=== PATIENT | male | born 1950 | race Caucasian/White ===

== ENCOUNTER 2022-10-08 13:11 | Observation (INO) | payer MEDICARE, SELFPAY ==
[2022-10-08] VITALS (14 sets, daily range): BP systolic 120–166; BP diastolic 81–129; PULSE 78–92; RESP 12–24; TEMP 36.3; O2SAT 99–100; BMI 24.4
--- NOTE | 2022-10-08 13:15 | DI.RAD.S_ITS ---
PROCEDURE: XR CHEST 1V INDICATIONS: chest pain TECHNIQUE: One view of the chest was acquired. COMPARISON: [facility], CT, CT ANGIO CHEST PE PROTOCOL, 10/08/2022, 16:42. FINDINGS: Surgical changes and devices: None. Lungs and pleura: Lungs are clear. No pleural effusions or pneumothorax. Mediastinum: Mediastinal contours appear normal. Heart size is prominent. Bones and chest wall: No suspicious bony lesions. Overlying soft tissues appear unremarkable. IMPRESSION: No acute cardiopulmonary abnormality. Dictated by: Justice Oneill M.D. on 10/09/2022 at 13:31 Approved by: Justice Oneill M.D. on 10/09/2022 at 13:32
--- NOTE | 2022-10-08 13:16 | DI.CT.S_ITS ---
PROCEDURE: CT HEAD/BRAIN WO CON INDICATIONS: fall on thinners. syncope TECHNIQUE: Noncontrast 4.5 mm thick angled axial sections acquired from the foramen magnum to the vertex, with coronal and sagittal reformats. For radiation dose reduction, the following was used: automated exposure control, adjustment of mA and/or kV according to patient size. COMPARISON: [facility], CR, XR CHEST 1V, 10/08/2022, 12:58. FINDINGS: Image quality: Excellent. CSF spaces: Basal cisterns are patent. No extra-axial fluid collections. The ventricles are symmetric in size and shape. Brain: No intracranial bleeds or masses. There is cerebral volume loss for age, with resultant ventricular and sulcal prominence. There are periventricular and deep white matter chronic small vessel ischemic changes. There is intracranial internal carotid artery atherosclerosis. Skull and face: Calvarium and visualized facial bones appear intact, without suspicious lesions. Sinuses: Visualized sinuses and mastoids are clear. IMPRESSION: No acute intracranial hemorrhage is seen. No acute intracranial process is seen. Dictated by: Jose Roberto Escoto M.D. on 10/08/2022 at 12:38 Approved by: Jose Roberto Escoto M.D. on 10/08/2022 at 12:39
[2022-10-08 14:01] LABS: Add Manual Diff / Slide Review NO; Basophils Absolute Auto 0 /uL (0-100); Basophils Percent Auto 0.3 % (0-2); Eosinophils Absolute Auto 0 /uL (0-450); Eosinophils Percent Auto 0.4 % (2-4); Hematocrit 43.3 % (41-53); Lymphocytes Absolute Auto 1000 /uL (1100-4500); Lymphocytes Percent Auto 10.9 % (25-40); Mean Corpuscular HGB Conc 34.7 % (30-36); Mean Corpuscular Hemoglobin 29.6 PG (26-34); Mean Corpuscular Volume 85.3 fL (80-100); Monocytes Absolute Auto 300 /uL (0-900); Monocytes Percent Auto 3.4 % (3-14); Neutrophils Absolute Auto 8100 /uL (1500-7000); Platelet Count 147 X10^3/uL (150-400); Red Blood Cell Count 5.07 X10^6/uL (4.5-5.9); Red Cell Distribution Width 12.4 % (11.6-14.8); White Blood Cell Count 9.6 X10^3/uL (4.5-11.0)
--- NOTE | 2022-10-08 14:02 | ED_ITS ---
HPI - Syncope General Chief Complaint: Trauma Stated Complaint: syncope Time Seen by Provider: 10/08/22 13:25 Source: patient, family and EMS Mode of arrival: EMS Limitations: no limitations History of Present Illness HPI narrative: Patient is a 72-year-old gentleman with a history of hypertension and TIA. Patient had a probable syncopal about 6:30 this morning. His was upstairs at home, she heard a crash. She called out to the patient, he answered saying he was okay. She went downstairs to check on him, she witnessed a 2nd syncopal event in front of her. He collapsed to the floor. There is slight shaking on down, no sustained seizure-type activity. He was unconscious only for several seconds then he was alert and oriented. He has a left brow laceration from the 1st fall. There were no injuries from the 2nd fall. He has minimal head pain. He has no visual changes or speech changes. He is alert and oriented without motor or sensory deficits. Related Data Home Medications Medication Instructions Recorded Confirmed amlodipine 10 mg tablet 10 mg PO DAILY 10/08/22 10/08/22 atorvastatin 40 mg tablet 40 mg PO QPM 10/08/22 10/08/22 cholecalciferol (vitamin D3) 25 1,000 unit PO DAILY 10/08/22 10/08/22 mcg (1,000 unit) tablet clopidogrel 75 mg tablet 75 mg PO DAILY 10/08/22 10/08/22 lisinopril 40 mg tablet 40 mg PO DAILY 10/08/22 10/08/22 metformin 1,000 mg tablet 1,000 mg PO QACBREAK 10/08/22 10/08/22 vitamin B complex 1 tab PO DAILY 10/08/22 10/08/22 Allergies Allergy/AdvReac Type Severity Reaction Status Date / Time diphenhydramine Allergy Intermediate Shakiness Verified 10/08/22 13:24 [From Yesika] Review of Systems Constitutional Constitutional: Denies chills, Denies fatigue, Denies fever(s) and Denies headache(s) Eyes Eyes: Denies blurry vision, Denies change in vision, Denies irritation and Denies loss of vision ENT Ears, Nose, Mouth, and Throat: Denies vertigo, Denies dizziness, Denies headache(s), Denies epistaxis, Denies mouth lesions, Denies nasal congestion and Denies sinus pain Cardiovascular Cardiovascular: Denies chest pain, Reports syncope, Denies rapid heart rate, Denies pedal edema, Denies irregular heart rhythm, Denies leg edema and Denies dyspnea on exertion Respiratory Respiratory: Denies chest congestion, Denies cough and Denies dyspnea on exe rtion Gastrointestinal Gastrointestinal: Denies abdominal pain, Denies dyspepsia, Denies nausea and Denies vomiting Genitourinary Comments: No symptoms Musculoskeletal Musculoskeletal: Denies arthralgias, Denies back pain, Denies deformity and Denies arthralgias Integumentary/Breasts Skin/Breast: Denies lesions and Denies rash Neurologic Neurologic: Denies behavioral changes, Denies confusion, Denies vertigo, Denies dizziness, Reports syncope, Denies headache(s), Denies loss of vision and Denies seizure-like activity (See HPI.) Psychiatric Psychiatric: Denies anxiety, Denies behavioral changes and Denies confusion Endocrine Endocrine: Denies fatigue Hematologic/Lymphatic Hematologic/Lymphatic: Reports system reviewed and no additional complaints, except as documented Comments: He is on Plavix due to history of TIA. Patient History Medical History (Updated 10/08/22 @ 15:21 by Dario Blanchard MD) Brain TIA Diabetes Hyperlipidemia Hypertension Social History household members: spouse Smoking Status: Never smoker Smoking Status: Never smoker alcohol intake frequency: 0-2 drinks per day Substance Use Type: does not use Exam Initial Vital Signs Initial Vital Signs: Vital Signs Pulse Rate 79 10/08/22 13:12 Respiratory Rate 15 10/08/22 13:12 Pulse Oximetry 100 10/08/22 13:12 Const General: cooperative, healthy appearing, comfortable, well developed and well groomed Orientation: Orientation (Normal) [facility] Head: other (Small left brow laceration.) Ears: TM's normal bilaterally Nose: nares normal Face and sinus: normal facial exam Mouth: oral mucosae normal Throat: posterior oropharynx normal Eyes General: Yes appearance normal, both eyes and all related structures Visual Ahn: normal visual ahn by confrontation Conjunctivae: conjunctivae normal Sclera: sclerae normal Pupils: PERRL EOM: EOM intact bilaterally Other: 1 cm left brow laceration, closed with Steri-Strips by nursing staff. Neck Neck: normal visual inspection, full ROM, supple and No JVD Thyroid: thyroid normal Chest Chest: normal inspection of the chest Resp Effort & Inspection: normal respiratory effort Auscultation: clear to auscultation bilaterally Cardio Palpation: normal PMI Rate: regular rate Rhythm: regular rhythm Heart Sounds: S1 normal, S2 normal, normal S1 and S2, no click, no gallops and no murmurs GI Inspection: normal to inspection Palpation: soft and No tender Auscultation: normal bowel sounds Back/Spine/Pelvis Back: normal to inspection and No back tenderness Skin General: no rashes or lesions noted Neuro General: patient alert, patient awake, patient oriented x3 and no focal motor deficits Motor: muscle tone normal throughout Sensory Exam: no sensory deficits noted Coordination: [id number] test normal Extrem General: normal to inspection, full ROM, no pedal edema and no calf tenderness Psych Appearance: grossly normal and well kempt Mental Status: mental status grossly normal Course Course Course Narrative: Patient's blood pressure, and cardiac monitoring has been normal since arrival. EKG is reassuring. He is given 2 g of magnesium for hypomagnesemia. There are no other immediate concerning lab abnormalities. Head CT is benign. His experience with syncope is highly concerning for arrhythmia. I have discussed the case with the hospitalist, Dr. Muhammad. The patient will be admitted to observation to a telemetry bed. Orders Ordered: ED Orders 10/08/22 13:15 XR chest 1V Stat COVID19 -Nasal RAPID/Pre-Proc Stat EKG-12 Lead Stat 10/08/22 13:16 CT head/brain wo con Stat 10/08/22 13:45 Complete Blood Count AUTO DIFF Stat Partial Thromboplastin Time Stat Prothrombin Time INR Stat 10/08/22 13:55 Comprehensive Metabolic Panel Stat Lipase Stat Magnesium Stat Troponin & CK Cardiac Panel Stat Discontinued Medications Aspirin (Aspirin 81 Mg Chew Tab) 324 mg PO NOW ONE Stop: 10/08/22 13:16 Last Admin: 10/08/22 13:29 Dose: Not Given Documented By: CHARLEE Vital Signs Vital signs: Vital Signs - 8 hr 10/08/22 13:16 10/08/22 13:16 10/08/22 13:12 Temperature 97.4 F L 97.4 F L Pulse Rate 83 79 Respiratory Rate 18 15 Blood Pressure 163/84 H Pulse Oximetry 99 100 Oxygen Delivery Method Room Air 10/08/22 13:26 10/08/22 13:26 10/08/22 13:30 Temperature Pulse Rate 79 Respiratory Rate 14 Blood Pressure 159/81 H 144/87 H Pulse Oximetry 100 Oxygen Delivery Method 10/08/22 13:30 10/08/22 14:00 10/08/22 14:00 Temperature Pulse Rate 78 82 Respiratory Rate 13 Blood Pressure 144/88 H Pulse Oximetry 100 100 Oxygen Delivery Method 10/08/22 14:30 10/08/22 14:30 Temperature Pulse Rate 81 Respiratory Rate 15 Blood Pressure 150/96 H Pulse Oximetry 100 Oxygen Delivery Method MDM - Syncope Lab Data 10/08/22 13:45 10/08/22 13:45 Labs: Lab Results 10/08/22 10/08/22 10/08/22 Range/Units 13:45 13:45 13:55 WBC 9.6 (4.5-11.0) X10^3/uL RBC 5.07 (4.5-5.9) X10^6/uL Hgb 15.0 (13.5-17.5) g/dL Hct 43.3 (41-53) % MCV 85.3 (80-100) fL MCH 29.6 (26-34) PG MCHC 34.7 (30-36) % RDW 12.4 (11.6-14.8) % Plt Count 147 L (150-400) X10^3/uL Neut % (Auto) 85.0 H (50-75) % Lymph % (Auto) 10.9 L (25-40) % [place] % (Auto) 3.4 (3-14) % Eos % (Auto) 0.4 L (2-4) % Baso % (Auto) 0.3 (0-2) % Neut # (Auto) 8100 H (2351-0092) /uL Lymph # (Auto) 1000 L (6572-7361) /uL [place] # (Auto) 300 (0-900) /uL Eos # (Auto) 0 (0-450) /uL Baso # (Auto) 0 (0-100) /uL PT 11.9 (10.1-12.7) SECONDS INR 1.0 (0.9-1.3) APTT 21 L (26-36) SECONDS Sodium 138 (137-145) mmol/L Potassium 3.9 (3.4-5.1) mmol/L Chloride 101 (98-107) mmol/L Carbon Dioxide 30 (22-32) mmol/L BUN 14 (9-20) mg/dL Creatinine 0.67 (0.66-1.25) mg/dL Estimated GFR > 60 (>60) mL/min BUN/Creatinine Ratio 20.9 (6-22) Glucose 152 H (80-110) mg/dL Calcium 9.5 (8.4-10.2) mg/dL Magnesium 1.4 L (1.6-2.3) mg/dL Total Bilirubin 1.1 (0.2-1.3) mg/dL AST 27 (17-59) IU/L ALT 24 (<50) IU/L Alkaline Phosphatase 58 (38-126) U/L Total Creatine Kinase 39 L (55-170) U/L CK-MB (CK-2) TNP CK-MB (CK-2) Rel Index TNP Troponin I < 0.012 (0.01-0.034) ng/mL Total Protein 6.9 (6.3-8.2) g/dL Albumin 4.1 (3.5-5.0) g/dL Globulin 2.8 (1.7-4.1) g/dL Albumin/Globulin Ratio 1.5 (1.0-2.8) Lipase 114 (23-300) U/L Imaging Data Chest x-ray: My Impression: No acute process CT scan - chest: Radiologist's Impression: No acute process. ECG Data Attestation: I personally reviewed and interpreted this ECG as follows: (Normal sinus rhythm rate 76 beats per minute. Minimal voltage for LVH. Poor R-wave progression to the anterior leads. No acute ST elevation. Normal intervals.) Critical Care Time Critical Care Time Critical Care Time: Yes Total Critical Care Time: 40 Attestation: Critical care time includes initial patient assessment. Time includes review of EKG, lab and radiology data. The situation was explained to the patient, with concerns about cardiac arrhythmia. The patient was discussed with admitting hospitalist. Discharge Plan Departure Patient Disposition: Admitted as Observation Prescriptions: No Action lisinopril 40 mg tablet 40 mg PO DAILY Label Comments: take 1 tablet by mouth once daily metformin 1,000 mg tablet 1,000 mg PO QACBREAK Label Comments: take 1 tablet by mouth EVERY MORNING WITH BREAKFAST amlodipine 10 mg tablet 10 mg PO DAILY Label Comments: take 1 tablet by mouth once daily clopidogrel 75 mg tablet 75 mg PO DAILY Label Comments: take 1 tablet by mouth once daily atorvastatin 40 mg tablet 40 mg PO QPM Label Comments: take 1 tablet by mouth nightly cholecalciferol (vitamin D3) 25 mcg (1,000 unit) tablet 1,000 unit PO DAILY Label Comments: take 1 tablet by mouth once daily vitamin B complex [B Complex 1] Tablet 1 tab PO DAILY Referrals: Miscellaneous,Doctor, MD [Primary Care Provider] - Admit Date/Time: 10/08/22 15:25
[2022-10-08 14:12] LABS: Prothrombin Time 11.9 SECONDS (10.1-12.7)
[2022-10-08 14:15] LABS: PTT Partial Thromboplastin Tim 21 SECONDS (26-36)
[2022-10-08 14:52] LABS: Alanine Aminotransferase 24 IU/L (<50); Albumin 4.1 g/dL (3.5-5.0); Albumin Globulin Ratio 1.5 (1.0-2.8); Alkaline Phosphatase 58 U/L (38-126); Aspartate Aminotransferase 27 IU/L (17-59); BUN Creatinine Ratio 20.9 (6-22); Bilirubin Total 1.1 mg/dL (0.2-1.3); Blood Urea Nitrogen 14 mg/dL (9-20); Calcium 9.5 mg/dL (8.4-10.2); Carbon Dioxide 30 mmol/L (22-32); Chloride 101 mmol/L (98-107); Creatine Kinase 39 U/L (55-170); Estimated Glomerular Filt Rate > 60 mL/min (>60); Globulin 2.8 g/dL (1.7-4.1); Glucose 152 mg/dL (80-110); HEMOLYSIS < 15 (0-50); Lipase 114 U/L (23-300); Magnesium 1.4 mg/dL (1.6-2.3); Potassium 3.9 mmol/L (3.4-5.1); Sodium 138 mmol/L (137-145); Total Protein 6.9 g/dL (6.3-8.2)
[2022-10-08 15:09] LABS: Troponin I < 0.012 ng/mL (0.01-0.034)
--- NOTE | 2022-10-08 15:21 | CM.DANOTE ---
CM Initial Discharge Assessment Patient is a 72yo male who is seen in the ED for syncope. Patient is independent at baseline and lives at home in [place] with his , Lin. Pt PCP is Dr. Juliana Tobin through the [facility]. He has no hx of SNF or HH. SW met with pt and at bedside. He is calm, cooperative, and easily engaged in assessment. Pt is physically active. He did have OP PT services this fall after a fall in April where he injured his knee playing with his grandchildren. He used a walking stick when outside during the fall. Does not use at this time. Pt is an avid birdwatcher. he identifies his as a support as well as her sister in [place]. They are relatively close with one neighbor. Pt has two children who live in [facility] and [place], each of which have four children. Plan: DCP will follow to assist with any discharge needs. QUINTON Núñez LICSW Discharge Planning/Care Management CM Discharge Assessment Start: 10/08/22 15:18 Freq: Status: Active Protocol: Document 10/08/22 15:19 VR (Rec: 10/08/22 15:21 VR [id number]) Discharge Planning Assessment Assigned Project Drilling Engineer QUINTON Núñez LICSW DPOA/Assigned Designee Name : Lin García Contact Information [phone] Advance Directives? No History Provided By Patient,Significant Other, Medical Record Has Patient been admitted in last 30 No days? Prior Living Arrangements House Household Members spouse Type of transporation used prior to Drives own vehicle admit Independent with ADL's Yes Is patient alert and oriented? Yes Caregiver for Another No Comment Has a walking stick which belonged to his father which he used when outside following a knee injury in april. Does not use at baseline. Barriers to Discharge No Discharge Plan Home Please Provide Date Initial DC 10/08/22 Assessment Was Performed
--- NOTE | 2022-10-08 15:26 | DI.ECHO.S_ITS ---
[facility] +---------+ : : [id number] : : : : [phone] : : : : Phone: [phone]+ Echocardiogram Report + + :Name: KENTON NUNEZ Study Date: 10/09/2022 Height: 71 in : :[facility] ReadingLocation: Weight: 175 lb : : Gender: Male BSA: 2.0 m2 : :: 1950 Age: 72 yrs BP: 133/83 mmHg: :Reason For Study: Syncope : :Ordering Physician: Jb, : :Bonilla GRIMM Performed By: Giselle Gomez : :Referring: Bonilla Muhammad DO : + + Interpretation Summary The left ventricle is normal in size and wall thickness. Left ventricular systolic function appears normal without focal wall motion abnormalities. The ejection fraction is estimated to be 65-70%. Diastolic parameters suggest a relaxation abnormality of the left ventricle, consistent with probable normal filling pressures. The right ventricle is normal in size and function. The left atrial size is normal. The right atrium is normal in size. There is no significant valvular heart disease. The aortic root is normal size. Procedure: A two-dimensional transthoracic echocardiogram with color flow and Doppler was performed. The patient was in sinus rhythm with heart rates between 72-81 bpm during the exam. Left Ventricle: The left ventricle is normal in size and wall thickness. Left ventricular systolic function appears normal without focal wall motion abnormalities. The ejection fraction is estimated to be 65-70%. Diastolic parameters suggest a relaxation abnormality of the left ventricle, consistent with probable normal filling pressures. Right Ventricle: The right ventricle is normal in size and function. Atria: The left atrial size is normal. The right atrium is normal in size. The atrial septum is aneurysmal. There is no Doppler evidence for an interatrial shunt. Mitral Valve: The mitral valve is normal in structure and function. The mitral valve leaflets are slightly calcified. There is trace mitral regurgitation. Aortic Valve: The aortic valve is trileaflet. The aortic valve is mildly calcified. There is mildly reduced leaflet mobility. There is trace aortic regurgitation. Tricuspid Valve: The tricuspid valve is normal in structure and function. There is a trace or physiologic amount of tricuspid regurgitation. Pulmonic Valve: The pulmonic valve leaflets are thin and pliable; valve motion is normal. There is a trace or physiologic amount of pulmonic regurgitation. There is no significant valvular heart disease. Great Vessels: The aortic root is normal size. The aortic arch is mildly enlarged. The IVC was not well visualized secondary to technical limitations making central venous pressures difficult to estimate. Pericardium/ Pleura There is no pericardial effusion. There is no pleural effusion. MMode/2D Measurements & Calculations LVIDd: 3.9 cm LVOT diam: 1.9 cm LVIDs: 2.3 cm Ao root diam: 3.8 cm FS: 41.0 % asc Aorta Diam: 3.6 cm EPSS: 0.30 cm IVSd: 1.0 cm LVPWd: 0.90 cm LV ramírez. diameter/BSA (cm/m^2): 2.0 LV sys. diameter/BSA (cm/m^2): 1.2 LA dimension: 3.7 cm RA long axis: 6.9 cm LA A2 area: 16.1 cm2 LA A4 area: 16.5 cm2 LA length (vol): 4.9 cm LA vol: 45.8 ml LA vol index: 23.0 ml/m2 LVLs ap4: 5.7 cm LVLd ap2: 7.7 cm LVLs ap2: 5.2 cm TAPSE_phl: 2.0 cm Doppler Measurements & Calculations Ao V2 max: 173.0 cm/sec LVOT Max Herson: 98.9 cm/sec Ao V2 mean: 130.0 cm/sec LV V1 max P.9 mmHg Ao max P.0 mmHg LV V1 VTI: 20.3 cm Ao mean P.0 mmHg GA(I,D): 1.5 cm2 Ao V2 VTI: 38.1 cm GA(V,D): 1.6 cm2 sev ratio: 0.53 GA indexed to BSA (cm^2/m^2): 0.76 MV E max herson: 81.2 cm/sec TR max herson: 239.0 cm/sec MV A max herson: 145.0 cm/sec TR max P.8 mmHg MV E/A: 0.56 PA V2 max: 79.7 cm/sec Med Peak E' Herson: 5.1 cm/sec PA V2 mean: 51.5 cm/sec E/E' med: 15.8 PA mean P.0 mmHg Lat Peak E' Herson: 4.2 cm/sec E/E' lat: 19.5 E/e' average: 17.7 MV dec time: 0.26 sec MVA(VTI): 1.8 cm2 MV V2 mean: 85.7 cm/sec SV(LVOT): 57.6 ml MV mean P.0 mmHg MV V2 VTI: 32.1 cm AV VR_phl: 0.57 GA(VTI)/BSA_phl: 0.76 Reading Physician:10:17 AM
[2022-10-08] MEDS: SODIUM CHLORIDE 0.9% 1,000 ML 100 ML IV (15:50)
[2022-10-08 16:15] LABS: COVID19 -Nasal RAPID Negative (Negative)
[2022-10-08 16:17] LABS: D Dimer 2640 ng/ml (<500)
[2022-10-08 16:20] LABS: Ethanol (ETOH) < 10 mg/dL
--- NOTE | 2022-10-08 16:23 | DI.CT.S_ITS ---
PROCEDURE: CT ANGIO CHEST PE PROTOCOL INDICATIONS: syncope, elevated dimer TECHNIQUE: After the administration of intravenous contrast, 2 mm thick sections acquired from the pulmonary apices to the posterior costophrenic angles. 3-dimensional maximum intensity projection (MIP) coronal and sagittal reformats were then acquired through the thorax. For radiation dose reduction, the following was used: automated exposure control, adjustment of mA and/or kV according to patient size. COMPARISON: [facility], CR, XR CHEST 1V, 10/08/2022, 12:58. [facility], CT, CT HEAD/BRAIN WO CON, 10/08/2022, 13:25. FINDINGS: Image quality: Excellent. Pulmonary arteries: Pulmonary arteries are normal in size, and demonstrate no intraluminal filling defects to suggest central pulmonary embolism. Lungs and pleura: Lungs are clear. No pleural effusions or pneumothorax. Central and peripheral airways are patent. Mediastinum: Heart size is normal, without pericardial effusion. No mediastinal or hilar adenopathy. Thoracic aorta is normal in caliber and enhancement. Esophagus is normal in caliber, without hiatal hernia. Bones and chest wall: No suspicious bony lesions. Ribs and thoracic spine appear intact throughout. Mild dextroconvex scoliotic curvature is seen. Lower cervical spine degenerative changes are no Thyroid gland demonstrates no significant abnormality. No axillary or supraclavicular adenopathy. Abdomen: Note is made that the hepatic flexure is elevated and seen anterior to the liver. The visualized portions of the upper abdominal structures are otherwise unremarkable for imaging technique. IMPRESSION: Negative for deep venous thrombosis. Additional findings: Lower cervical spine degenerative change Dextroconvex scoliotic curvature Elevated hepatic flexure, seen anterior to the liver Dictated by: Jose Roberto Escoto M.D. on 10/08/2022 at 16:10 Approved by: Jose Roberto Escoto M.D. on 10/08/2022 at 16:12
[2022-10-08 16:26] LABS: Hemoglobin A1C% w Est Avg Glu 8.6 % (4.0-6.0)
--- NOTE | 2022-10-08 16:28 | P.HP_ITS ---
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 States he woke up around 8:00 a.m. kitchen for some water. His was upstairs and around 9:00 a.m. she heard a thump downstairs which she now believes was him passing out. At the time however she called down to say if he was okay and he called back so she did not check on him. Patient does not recall this event or the time afterward until around 10:00 a.m. when he was again in the kitchen with his beside him and then suddenly lost consciousness and hit the floor causing a laceration on his left eyebrow. He laid there for a few seconds per his , then came to and was immediately coherent and wondering what had happened. Patient remembers getting up off the floor and everything after that. Patient had not eaten anything yet that morning blood sugar is 123 and blood pressure was 130's systolic. He also had not taken his morning blood pressure medications yet. Patient denies chest pain, shortness breast, headache, palpitations, dizziness, abdominal pain or diarrhea. Patient History Medical History (Updated 10/08/22 @ 15:21 by Dario Blanchard MD) Brain TIA Diabetes Hyperlipidemia Hypertension Family & Social History Social History: household members spouse Prior Living Arrangements House Safety & Behavioral: Feels Safe in Current Yes Environment Been Physically Hurt or No Threatened By a Person Tobacco & Substance use: Smoking Status Never smoker alcohol intake frequency 0-2 drinks per day Substance Use Type does not use Meds Home Medications and Allergies Home Medications Medication Instructions Recorded Confirmed Type amlodipine 10 mg tablet 10 mg PO DAILY 10/08/22 10/08/22 History atorvastatin 40 mg tablet 40 mg PO QPM 10/08/22 10/08/22 History cholecalciferol (vitamin D3) 25 1,000 unit PO DAILY 10/08/22 10/08/22 History mcg (1,000 unit) tablet clopidogrel 75 mg tablet 75 mg PO DAILY 10/08/22 10/08/22 History lisinopril 40 mg tablet 40 mg PO DAILY 10/08/22 10/08/22 History metformin 1,000 mg tablet 1,000 mg PO QACBREAK 10/08/22 10/08/22 History vitamin B complex 1 tab PO DAILY 10/08/22 10/08/22 History Allergies Allergy/AdvReac Type Severity Reaction Status Date / Time diphenhydramine Allergy Intermediate Shakiness Verified 10/08/22 13:24 [From Benadryl] Review of Systems Review of Systems Narrative: All other systems reviewed with the patient and are negative unless otherwise stated. Exam Vital Signs (past 8 hours): - 10/08/22 13:16 10/08/22 13:16 10/08/22 13:12 Temperature 97.4 F L 97.4 F L Pulse Rate 83 79 Respiratory Rate 18 15 Blood Pressure 163/84 H Pulse Oximetry 99 100 Oxygen Delivery Method Room Air 10/08/22 13:26 10/08/22 13:26 10/08/22 13:30 Temperature Pulse Rate 79 Respiratory Rate 14 Blood Pressure 159/81 H 144/87 H Pulse Oximetry 100 Oxygen Delivery Method 10/08/22 13:30 10/08/22 14:00 10/08/22 14:00 Temperature Pulse Rate 78 82 Respiratory Rate 13 Blood Pressure 144/88 H Pulse Oximetry 100 100 Oxygen Delivery Method 10/08/22 14:30 10/08/22 14:30 10/08/22 15:00 Temperature Pulse Rate 81 Respiratory Rate 15 Blood Pressure 150/96 H 152/91 H Pulse Oximetry 100 Oxygen Delivery Method 10/08/22 15:00 Temperature Pulse Rate 86 Respiratory Rate 20 Blood Pressure Pulse Oximetry 100 Oxygen Delivery Method Oxygen Delivery Method Room Air Narrative Exam Narrative: GEN: no acute distress, left eyebrow laceration without current bleeding HEENT: moist mucous membranes, PERRL NECK: trachea midline, no JVD CV: regular rate and rhythm, no murmurs PULM: clear bilaterally ABD: soft, nontender, nondistended, no organomegaly EXT: warm and well perfused with no edema NEURO: awake, alert, oriented, no focal deficits Objective Labs 10/08/22 13:45 10/08/22 13:55 Labs: Laboratory Results - last 24 hr 10/08/22 10/08/22 10/08/22 13:45 13:45 13:45 WBC 9.6 RBC 5.07 Hgb 15.0 Hct 43.3 MCV 85.3 MCH 29.6 MCHC 34.7 RDW 12.4 Plt Count 147 L Neut % (Auto) 85.0 H Lymph % (Auto) 10.9 L [place] % (Auto) 3.4 Eos % (Auto) 0.4 L Baso % (Auto) 0.3 Neut # (Auto) 8100 H Lymph # (Auto) 1000 L [place] # (Auto) 300 Eos # (Auto) 0 Baso # (Auto) 0 PT 11.9 INR 1.0 APTT 21 L D-Dimer 2640 H Sodium Potassium Chloride Carbon Dioxide BUN Creatinine Estimated GFR BUN/Creatinine Ratio Glucose Calcium Magnesium Total Bilirubin AST ALT Alkaline Phosphatase Total Creatine Kinase CK-MB (CK-2) CK-MB (CK-2) Rel Index Troponin I Total Protein Albumin Globulin Albumin/Globulin Ratio Lipase Ethyl Alcohol SARS-CoV-2 (PCR) 10/08/22 10/08/22 10/08/22 13:55 14:24 15:23 WBC RBC Hgb Hct MCV MCH MCHC RDW Plt Count Neut % (Auto) Lymph % (Auto) [place] % (Auto) Eos % (Auto) Baso % (Auto) Neut # (Auto) Lymph # (Auto) [place] # (Auto) Eos # (Auto) Baso # (Auto) PT INR APTT D-Dimer Sodium 138 Potassium 3.9 Chloride 101 Carbon Dioxide 30 BUN 14 Creatinine 0.67 Estimated GFR > 60 BUN/Creatinine Ratio 20.9 Glucose 152 H Calcium 9.5 Magnesium 1.4 L Total Bilirubin 1.1 AST 27 ALT 24 Alkaline Phosphatase 58 Total Creatine Kinase 39 L CK-MB (CK-2) TNP CK-MB (CK-2) Rel Index TNP Troponin I < 0.012 Total Protein 6.9 Albumin 4.1 Globulin 2.8 Albumin/Globulin Ratio 1.5 Lipase 114 Ethyl Alcohol < 10 SARS-CoV-2 (PCR) Negative Assessment & Plan Assessment & Plan narrative: # acute syncope -patient likely had 2 syncopal episodes at home at 9am which was unwitnessed and again at 10am which was witnessed -doubt hypoglycemia and orthostatic hypotension as BG was 123 and BP 130 right after event -concern is for cardiac arrythmia vs PE given dimer is 2640, however no CP or dyspnea and ECG reassuring without AV blocks -trend trops -telemetry -head CT negative, obtain CTA chest to r/o PE -obtain echo -check ethanol and drug screen # hypomagnesemia -1.4 in ED, s/p 2g -monitor and replete # history of TIA's -patient has had 4 previous each time with speech issues -was likely previously on aspirin alone, but due to repeat TIA now on plavix -continue plavix # HTN, chronic -check orthostatics and if ok will give home BP meds # HLD, chronic -continue home statin # DM2, chronic -check A1c -hold home metformin and use SSI Code status is full code. COVID negative. DVT prophylaxis with Lovenox. Proxy is . I have reviewed home meds and used all available resources to reconcile the home meds. This patient will be admitted as observation and will require less than 2 midnights of hospital time for syncopal workup. Time Spent With Patient Critical Care time: I spent a total of [] minutes of critical care time on this patient's care today; this time is exclusive of procedural time.
[2022-10-08] MEDS: MAGNESIUM SULFATE 2 GM/50 ML PIGGYBACK IV (16:46)
[2022-10-08 16:52] LABS: TSH w/ Reflex to FT4 0.74 uIU/mL (0.47-4.68)
[2022-10-08 18:02] LABS: Appearance Urine UA CLEAR; Bilirubin Urine UA NEGATIVE (NEGATIVE); Color Urine UA YELLOW; Glucose Urine UA NEGATIVE (Negative); Ketones Urine UA 2+ (NEGATIVE); Leukocyte Esterase Urine UA NEGATIVE (NEGATIVE); Nitrite Urine UA NEGATIVE (Negative); Occult Blood Urine UA NEGATIVE (Negative); Protein Urine UA NEGATIVE (Negative); Specific Gravity Urine UA 1.015 (1.000-1.035)
[2022-10-08 18:10] LABS: UR Morphine/Opiate cutoff 300 Negative (Negative); Ur Creatinine Normal (Normal); Ur Specific Gravity Normal (Normal); Urine Amphetamines Negative (Negative); Urine Barbiturates Negative (Negative); Urine Benzodiazepines Negative (Negative); Urine Cocaine Negative (Negative); Urine MDMA Negative (Negative); Urine Methadone Negative (Negative); Urine Methamphetamines Negative (Negative); Urine Oxycodone Negative (Negative); Urine Phencyclidine Negative (Negative); Urine Tetrahydrocannabinol Negative (Negative); Urine Tricyclic Antidepressant Negative (Negative); Urine pH Normal (Normal)
[2022-10-08 18:20] LABS: Bacteria Urine None Seen; RBC Urine None Seen (0-5/HPF); Squamous Epithelial Cell Urine None Seen (0-5/HPF); WBC Urine None Seen (0-5/HPF)
[2022-10-08 18:21] LABS: Culture Indicated Urine Cult Not Indicated
[2022-10-08 18:44] LABS: Troponin I < 0.012 ng/mL (0.01-0.034)
[2022-10-08] MEDS: ATORVASTATIN 20 MG TABLET 40 MG PO (21:02)
[2022-10-08] MEDS: INSULIN LISPRO 100 UNIT/ML 3ML VIAL SUBCUT (21:03)
[2022-10-08 22:56] LABS: Troponin I < 0.012 ng/mL (0.01-0.034)
[2022-10-09 00:05] VITALS: BP 129/87; PULSE 84; RESP 20; TEMP 37.1; O2SAT 97
[2022-10-09] MEDS: SODIUM CHLORIDE 0.9% 1,000 ML 100 ML IV (02:44)
[2022-10-09 03:47] VITALS: BP 133/83; PULSE 78; RESP 17; TEMP 36.9; O2SAT 100
[2022-10-09] MEDS: SODIUM CHLORIDE 0.9% FLUSH 10 ML IV ×2 (03:51→08:49)
[2022-10-09 06:25] LABS: Add Manual Diff / Slide Review NO; Basophils Absolute Auto 0 /uL (0-100); Basophils Percent Auto 0.4 % (0-2); Eosinophils Absolute Auto 100 /uL (0-450); Hematocrit 38.3 % (41-53); Hemoglobin 13.4 g/dL (13.5-17.5); Lymphocytes Absolute Auto 1300 /uL (1100-4500); Lymphocytes Percent Auto 16.9 % (25-40); Mean Corpuscular HGB Conc 35.1 % (30-36); Mean Corpuscular Hemoglobin 29.9 PG (26-34); Mean Corpuscular Volume 85.1 fL (80-100); Monocytes Absolute Auto 600 /uL (0-900); Monocytes Percent Auto 8.4 % (3-14); Neutrophils Absolute Auto 5500 /uL (1500-7000); Neutrophils Percent Auto 73.3 % (50-75); Platelet Count 177 X10^3/uL (150-400); Red Cell Distribution Width 12.5 % (11.6-14.8); White Blood Cell Count 7.6 X10^3/uL (4.5-11.0)
[2022-10-09 06:33] LABS: BUN Creatinine Ratio 18.5 (6-22); Blood Urea Nitrogen 12 mg/dL (9-20); Calcium 8.7 mg/dL (8.4-10.2); Carbon Dioxide 26 mmol/L (22-32); Chloride 102 mmol/L (98-107); Estimated Glomerular Filt Rate > 60 mL/min (>60); Glucose 199 mg/dL (80-110); HEMOLYSIS 16 (0-50); Potassium 4.2 mmol/L (3.4-5.1); Sodium 136 mmol/L (137-145)
[2022-10-09 06:36] LABS: Magnesium 1.6 mg/dL (1.6-2.3)
[2022-10-09 08:32] VITALS: BP 127/78; PULSE 72; RESP 18; TEMP 36.8; O2SAT 98
[2022-10-09 08:45] VITALS: BP 127/78; PULSE 72
[2022-10-09] MEDS: lisinopriL 20 MG TABLET 40 MG PO (08:45)
[2022-10-09] MEDS: MAGNESIUM SULFATE 4 GM/100 ML PIGGYBACK IV (08:45)
[2022-10-09] MEDS: ENOXAPARIN 40 MG/0.4 ML SYRINGE SUBCUT (08:45)
[2022-10-09] MEDS: AMLODIPINE 5 MG TABLET 10 MG PO (08:46)
[2022-10-09] MEDS: CLOPIDOGREL 75 MG TABLET PO (08:46)
[2022-10-09] MEDS: INSULIN LISPRO 100 UNIT/ML 3ML VIAL SUBCUT ×2 (08:48→12:24)
--- NOTE | 2022-10-09 11:39 | CM.DPNOTE ---
DC Note Reviewed chart. Patient has been discharged home today, to the care of his Lin. No barriers identified to patient's safe return home w/family, close outpatient f/u recommended JW
--- NOTE | 2022-10-09 15:35 | P.DS_ITS ---
History of Present Illness History of Present Illness Date Patient Seen: 10/09/22 Chief complaint: syncope Narrative: Jonathan García is a 72-year-old male with past medical history of multiple TIAs on Plavix, type 2 diabetes, hyperlipidemia, hypertension who presents for suspected syncope after fall at home. States he woke up around 8:00 a.m. kitchen for some water. His was upstairs and around 9:00 a.m. she heard a thump downstairs which she now believes was him passing out. At the time however she called down to say if he was okay and he called back so she did not check on him. Patient does not recall this event or the time afterward until around 10:00 a.m. when he was again in the kitchen with his beside him and then suddenly lost consciousness and hit the floor causing a laceration on his left eyebrow. He laid there for a few seconds per his , then came to and was immediately coherent and wondering what had happened. Patient remembers getting up off the floor and everything after that. Patient had not eaten anything yet that morning blood sugar is 123 and blood pressure was 130's systolic. He also had not taken his morning blood pressure medications yet. Patient denies chest pain, shortness breast, headache, palpitations, dizziness, abdominal pain or diarrhea. Discharge Providers Provider Date of admission: 10/08/22 15:25 Discharge Date: 10/09/22 Primary care physician: Doctor Jose Martin MD Discharge provider: Bonilla Muhammad DO Summary Hospital Course Discharge Diagnosis: # acute syncope -patient likely had 2 syncopal episodes at home at 9am which was unwitnessed and again at 10am which was witnessed -doubt hypoglycemia and orthostatic hypotension as BG was 123 and BP 130 right after event -concern is for cardiac arrythmia vs PE given dimer is 2640, however no CP or dyspnea and ECG reassuring without AV blocks -trops neg x3 -negative orthostatic vitals -telemetry showed now arrythmias -head CT negative, CTA chest to r/o PE negative -echo reassuring with EF 65-70% and diastolic dysfunction, no valvular disease and otherwise normal -ethanol and drug screen negative # hypomagnesemia -1.4 in ED, s/p 2g then 4g -monitor and replete # history of TIA's -patient has had 4 previous each time with speech issues -was likely previously on aspirin alone, but due to repeat TIA now on plavix -continue plavix # HTN, chronic -check orthostatics and if ok will give home BP meds # HLD, chronic -continue home statin # DM2, chronic -A1c 8.6% -hold home metformin and use SSI -raised metformin to 1000mg BID from qd on discharge Hospital Course: Patient admitted for syncope and had a full workup which was reassuring including EKG, tele, orthostatic vitals and echocardiogram. Mag was low and this was replaced with IV mag. Echo showed diastolic dysfunction with EF 65-70% but otherwise normal. Patient to speak with PCP about wearing a heart monitor as outpatient to look for arrhythmias over a few weeks. A1c was also elevated at 8.6% so raised home metformin to twice per day at 1000mg, then should have A1c rechecked in 3 months. Counseled he can also raise your insulin by 2 units until your morning glucose is in the range of 70-130, and currently at 180 in the mornings lately. Time Spent with Patient Time spent: Greater than 30 minutes Exam Vital Signs (past 8 hours): - 10/09/22 08:32 10/09/22 08:45 Temperature 98.3 F Pulse Rate 72 72 Respiratory Rate 18 Blood Pressure 127/78 127/78 Pulse Oximetry 98 Oxygen Flow Rate 0 Oxygen Delivery Method Room Air Oxygen Flow Rate 0 Narrative Exam Narrative: GEN: no acute distress, left eyebrow laceration with steri strips in place HEENT: moist mucous membranes, PERRL NECK: trachea midline, no JVD CV: regular rate and rhythm, no murmurs PULM: clear bilaterally ABD: soft, nontender, nondistended, no organomegaly EXT: warm and well perfused with no edema NEURO: awake, alert, oriented, no focal deficits Objective Labs 10/09/22 05:42 10/09/22 05:42 Labs: Laboratory Results - last 24 hr 10/08/22 10/08/22 10/08/22 13:45 13:45 13:45 WBC RBC Hgb Hct MCV MCH MCHC RDW Plt Count Neut % (Auto) Lymph % (Auto) [place] % (Auto) Eos % (Auto) Baso % (Auto) Neut # (Auto) Lymph # (Auto) [place] # (Auto) Eos # (Auto) Baso # (Auto) D-Dimer 2640 H Sodium Potassium Chloride Carbon Dioxide BUN Creatinine Estimated GFR BUN/Creatinine Ratio Glucose Hemoglobin A1c 8.6 H Calcium Magnesium Troponin I TSH 0.74 Urine Color Urine Appearance Urine pH Ur Specific [place] Urine Protein Urine Glucose (UA) Urine Ketones Urine Occult Blood Urine Nitrate Urine Bilirubin Urine Urobilinogen Ur Leukocyte Esterase Urine RBC Urine WBC Ur Squamous Epith Cells Urine Bacteria Ur Culture Indicated? U Opiates 300ng/mL cut Ur Oxycodone Screen Urine Methadone Screen Ur Barbiturates Screen U Tricyclic Antidepress Ur Phencyclidine Scrn Ur Amphetamines Screen U Methamphetamines Scrn Ur MDMA Scrn (Ecstasy) U Benzodiazepines Scrn Urine Cocaine Screen U Marijuana (THC) Screen Ethyl Alcohol SARS-CoV-2 (PCR) 10/08/22 10/08/22 10/08/22 14:24 15:23 17:35 WBC RBC Hgb Hct MCV MCH MCHC RDW Plt Count Neut % (Auto) Lymph % (Auto) [place] % (Auto) Eos % (Auto) Baso % (Auto) Neut # (Auto) Lymph # (Auto) [place] # (Auto) Eos # (Auto) Baso # (Auto) D-Dimer Sodium Potassium Chloride Carbon Dioxide BUN Creatinine Estimated GFR BUN/Creatinine Ratio Glucose Hemoglobin A1c Calcium Magnesium Troponin I TSH Urine Color Yellow Urine Appearance Clear Urine pH 8.0 Ur Specific [place] 1.015 Urine Protein Negative Urine Glucose (UA) Negative Urine Ketones 2+ H Urine Occult Blood Negative Urine Nitrate Negative Urine Bilirubin Negative Urine Urobilinogen 2.0 H Ur Leukocyte Esterase Negative Urine RBC None seen Urine WBC None seen Ur Squamous Epith Cells None seen Urine Bacteria None seen Ur Culture Indicated? Cult not indicated U Opiates 300ng/mL cut Ur Oxycodone Screen Urine Methadone Screen Ur Barbiturates Screen U Tricyclic Antidepress Ur Phencyclidine Scrn Ur Amphetamines Screen U Methamphetamines Scrn Ur MDMA Scrn (Ecstasy) U Benzodiazepines Scrn Urine Cocaine Screen U Marijuana (THC) Screen Ethyl Alcohol < 10 SARS-CoV-2 (PCR) Negative 10/08/22 10/08/22 10/08/22 17:35 18:07 22:24 WBC RBC Hgb Hct MCV MCH MCHC RDW Plt Count Neut % (Auto) Lymph % (Auto) [place] % (Auto) Eos % (Auto) Baso % (Auto) Neut # (Auto) Lymph # (Auto) [place] # (Auto) Eos # (Auto) Baso # (Auto) D-Dimer Sodium Potassium Chloride Carbon Dioxide BUN Creatinine Estimated GFR BUN/Creatinine Ratio Glucose Hemoglobin A1c Calcium Magnesium Troponin I < 0.012 < 0.012 TSH Urine Color Urine Appearance Urine pH Ur Specific [place] Urine Protein Urine Glucose (UA) Urine Ketones Urine Occult Blood Urine Nitrate Urine Bilirubin Urine Urobilinogen Ur Leukocyte Esterase Urine RBC Urine WBC Ur Squamous Epith Cells Urine Bacteria Ur Culture Indicated? U Opiates 300ng/mL cut Negative Ur Oxycodone Screen Negative Urine Methadone Screen Negative Ur Barbiturates Screen Negative U Tricyclic Antidepress Negative Ur Phencyclidine Scrn Negative Ur Amphetamines Screen Negative U Methamphetamines Scrn Negative Ur MDMA Scrn (Ecstasy) Negative U Benzodiazepines Scrn Negative Urine Cocaine Screen Negative U Marijuana (THC) Screen Negative Ethyl Alcohol SARS-CoV-2 (PCR) 10/09/22 10/09/22 10/09/22 05:42 05:42 05:42 WBC 7.6 RBC 4.50 Hgb 13.4 L Hct 38.3 L MCV 85.1 MCH 29.9 MCHC 35.1 RDW 12.5 Plt Count 177 Neut % (Auto) 73.3 Lymph % (Auto) 16.9 L [place] % (Auto) 8.4 Eos % (Auto) 1.0 L Baso % (Auto) 0.4 Neut # (Auto) 5500 Lymph # (Auto) 1300 [place] # (Auto) 600 Eos # (Auto) 100 Baso # (Auto) 0 D-Dimer Sodium 136 L Potassium 4.2 Chloride 102 Carbon Dioxide 26 BUN 12 Creatinine 0.65 L Estimated GFR > 60 BUN/Creatinine Ratio 18.5 Glucose 199 H Hemoglobin A1c Calcium 8.7 Magnesium 1.6 Troponin I TSH Urine Color Urine Appearance Urine pH Ur Specific [place] Urine Protein Urine Glucose (UA) Urine Ketones Urine Occult Blood Urine Nitrate Urine Bilirubin Urine Urobilinogen Ur Leukocyte Esterase Urine RBC Urine WBC Ur Squamous Epith Cells Urine Bacteria Ur Culture Indicated? U Opiates 300ng/mL cut Ur Oxycodone Screen Urine Methadone Screen Ur Barbiturates Screen U Tricyclic Antidepress Ur Phencyclidine Scrn Ur Amphetamines Screen U Methamphetamines Scrn Ur MDMA Scrn (Ecstasy) U Benzodiazepines Scrn Urine Cocaine Screen U Marijuana (THC) Screen Ethyl Alcohol SARS-CoV-2 (PCR) [facility] Medical History (Updated 10/08/22 @ 21:18 by Yasmeen Vicente RN) Brain TIA Diabetes Hyperlipidemia Hypertension Social History household members: spouse Smoking Status: Never smoker alcohol intake: current Discharge Plan Discharge Plan Patient Disposition: Home Provider Discharge Comment: You were admitted for syncope and had a full workup which was reassuring including EKG, heart monitor over 2 days, orthostatic vital signs and echocardiogram. Her echo showed you have diastolic dysfunction which is likely from your longstanding high blood pressure. He should speak with your PCP about what heart monitor sometimes called a ZIO patch which is placed by Cardiology. This will try to catch any irregular heart rhythms over a few weeks span. Your A1c was also elevated at 8.6% indicating that your current metformin dose is not high enough. I would start taking the metformin twice per day at 1000mg which is the goal dose for diabetics, then have your A1c checked in 3 [facility]. You can also raise your insulin by 2 units until your morning glucose is in the range of 70-130. Discharge orders & Medications Prescriptions: Continued lisinopril 40 mg tablet 40 mg PO DAILY Label Comments: take 1 tablet by mouth once daily amlodipine 10 mg tablet 10 mg PO DAILY Label Comments: take 1 tablet by mouth once daily clopidogrel 75 mg tablet 75 mg PO DAILY Label Comments: take 1 tablet by mouth once daily atorvastatin 40 mg tablet 40 mg PO QPM Label Comments: take 1 tablet by mouth nightly cholecalciferol (vitamin D3) 25 mcg (1,000 unit) tablet 1,000 unit PO DAILY Label Comments: take 1 tablet by mouth once daily vitamin B complex Tablet 1 tab PO DAILY Changed metformin 1,000 mg tablet 1,000 mg PO BIDWM Qty: 60 0RF Label Comments: take 1 tablet by mouth EVERY MORNING WITH BREAKFAST Follow up/Referrals: Doctor Philippe MD [Primary Care Provider] - Visit Report/Discharge Packet Instructions: DI for Syncope in Adults (Fainting) Stand Alone Forms: Patient Portal/API, Stroke Signs & Symptoms Discharge Data Primary Care Provider: Doctor Jose Martin Attending Provider: Bonilla Muhammad VTE Deep Vein Thrombosis/Pulmonary Embolism Present on Admission: No
== END 2022-10-09 13:35 | disposition home or self-care (01) ==
LOC: ED 14:02 → AC 15:26
PROVIDERS: Admitting Provider Student in an Organized Health Care Education/Training Program; Emergency Provider Emergency Medicine; Referring Provider Emergency Medicine; Visit Provider Student in an Organized Health Care Education/Training Program
DX: R55 Syncope and collapse (principal); S01.81XA Laceration without foreign body of other part of head, initial encounter; W18.30XA Fall on same level, unspecified, initial encounter; Y92.009 Unspecified place in unspecified non-institutional (private) residence as the place of occurrence of the external cause; I10 Essential (primary) hypertension; Z86.73 Personal history of transient ischemic attack (TIA), and cerebral infarction without residual deficits; E11.9 Type 2 diabetes mellitus without complications; E83.42 Hypomagnesemia; Z79.84 Long term (current) use of oral hypoglycemic drugs; Z20.822 Contact with and (suspected) exposure to COVID-19
CPT/HCPCS: 36415; 70450; 71045; 71275; 80048; 80053; 80305; 80320; 81001; 82550; 82962; 83036; 83690; 83735; 84443; 84484; 85025; 85379; 85610; 85730; 87635; 93005; 93306; 96361; 96365; 96366; 96372; 99285; 99291; C9803; G0378; G0390; J1650; J1815; J3475; Q9967